=== PATIENT | male | born 1955 | race Caucasian/White ===

== ENCOUNTER 2023-02-28 15:20 | Outpatient (RCR) | payer MEDICARE, OTHER, SELFPAY | END 2023-04-02 08:00 | disposition home or self-care (01) | LOC: PT 15:20 | PROVIDERS: PCP Internal Medicine; Visit Provider Anesthesiology | DX: M54.2 Cervicalgia (principal) | CPT/HCPCS: 97010; 97012; 97140; 97162 ==

== ENCOUNTER 2023-04-03 10:12 | Outpatient (RCR) | payer MEDICARE, OTHER, SELFPAY | END 2023-04-05 16:46 | disposition home or self-care (01) | LOC: PT 10:12 | PROVIDERS: PCP Internal Medicine; Visit Provider Anesthesiology | DX: M54.2 Cervicalgia (principal) | CPT/HCPCS: 97012; 97140 ==

== ENCOUNTER 2024-07-18 13:08 | Outpatient (OUT) | payer MEDICARE, OTHER, SELFPAY ==
--- OUTSIDE RECORDS SUMMARY | 2024-07-18 13:25 | XMS_ITS | CCD ---
Author Organization [facility] Care Team Providers Care Senior Research Project Manager Name Role Phone DR DEMOND MERCADO Consulting Unavailable GORDON, DR BAE Attending Unavailable GORDON, DR BAE Admitting Unavailable GORDON, DR BAE Primary Care Unavailable DEMOND MERCADO Primary Care Physician [phone] [place] Oliveros Unavailable Demond Mercado MD Primary Care Provider Demond Mercado MD Unavailable BOB RAMIRES Attending Unavailable DOLBOB ARCHER Referring Unavailable DOLCE, BOB Montoya Attending Unavailable DOLBOB ARCHER Referring Unavailable DOLBOB ARCHER Attending Unavailable DEMOND MERCADO Attending Unavailable DOLCE, BOB Montoya Attending Unavailable NILLAaron Attending Unavailable Allergies Allergy Classification Reported Allergen(s) Allergy Type Date of Onset Reaction(s) Facility (5 sources) atorvastatin; Translations: [atorvastatin] Drug Allergy Muscle pain (finding) [place] (17 sources) atorvastatin Drug Allergy 3 [facility] Medications Current Medications Medication Drug Class(es) Dates Sig (Normalized) Sig (Original) acetaminophen 325 mg / oxyCODONE hydrochloride 5 mg oral tablet (4 sources) Opioid Agonist Start: 02-21-2024 End: 02-26-2024 take 1 tablet by mouth every six hours for pain oxyCODONE-acetam inophen (Percocet) 5-325 MG tablet Indications: Pain Take 1 tablet by mouth every 6 (six) hours if needed for severe pain for up to 5 days 15 tablet 02/21/2024 02/26/2024 Active ascorbic acid 500 mg oral capsule (18 sources) Vitamin C Ascorbic Acid (Vitamin C) 500 MG capsule Take by mouth 1 (one) time each day. Active B Complex Vitamins (vitamin B complex) tablet (17 sources) take 1 tablet by mouth in the morning B Complex Vitamins (vitamin B complex) tablet Take 1 tablet by mouth in the morning. Active diclofenac sodium 0.01 mg/mg topical gel (1 source) Nonsteroidal Anti-inflammatory Drug Start: 04-12-2023 Diclofenac Sodium 1 % as directed Externally apply 2 grams to painful areas two to three times daily for 30 days Apr, Active docosahexaenoic acid 120 mg / eicosapentaenoic acid 180 mg oral capsule (17 sources) take 1 capsule by mouth in the morning omega-3 (Fish Oil) 1000 MG capsule Take 1,000 mg by mouth in the morning. Active ferrous sulfate 325 mg oral tablet (17 sources) Start: 11-21-2016 Ferrous Sulfate (iron) 325 (65 Fe) MG tablet 1 (one) time each day. 11/21/2016 Active Fish Oils (6 sources) Start: 01-16-2020 take 2 capsules by mouth once daily Fish Oil 1200 mg oral capsule 2,400 mg = 2 cap(s), Oral, Daily, Refills(s) 0, High cholesterol Start Date: 01/16/20 Status: Ordered take 1 capsule by mouth once rudi ly Fish Oil 1000 MG 1 capsule Orally Once a day Active Iron (6 sources) Start: 02-11-2020 take 1 tablet by tamir th once daily iron iron, 1 tab, Oral, Daily Start Date: 02/11/20 Status: Ordered Start: 11-21-2016 Iron 1 tab Ora l *please review for potential _update for e-prescription and drug interaction check* Nov, Active levothyroxine sodium 0.1 mg oral tablet (20 sources) l-Thyroxine Start: 11-29-2022 End: 03-11-2025 take 1 tablet by mouth before mealtime levothyroxine (Synthroid, Levoxyl) 100 MCG tablet Indications: Hypothyroidism, unspecified (CMS/HCC) Take 1 tablet (100 mcg) by mouth in the morning. Take before meals. 90 tablet 3 03/11/2024 03/11/2025 Active Start: 01-16-2020 take 1 tablet by tamir th once daily levothyroxine 100 mcg (0.1 mg) Tab 100 microgram = 1 tab(s), Oral, Daily, Refills(s) 0, Thyroid Start Date: 01/16/20 Status: Ordered [facility] Medication (3 sources) Start: 08-31-2021 [facility] Medicatio n Start Date: 08/31/21 Status: Ordered naproxen 500 mg oral tablet (4 sources) Nonsteroidal Anti-inflammatory Drug Start: 01-16-2020 take 1 tablet by mouth once daily naproxen 500 mg Tab 500 mg = 1 tab(s), Oral, Daily, Refills(s) 0, Inflammation Start Date: 01/16/20 Status: Ordered Start: 09-11-2019 take 1 tablet by tamir th every twelve hours at mealtime as needed Naproxen 500 MG 1 tablet with food or milk as needed Orally every 12 hrs Sep, Active rosuvastatin calcium 40 mg oral tablet (20 sources) HMG-CoA Reductase Inhibitor Start: 08-21-2019 take 1 tablet by mouth once daily rosuvastatin (Crestor) 40 MG tablet Indications: Mixed hyperlipidemia (CMS/HCC) TAKE 1 TABLET BY MOUTH EVERY DAY 100 tablet 3 05/03/2023 Active saw palmetto (1 source) Start: 08-31-2021 Saw palmetto extract (2 sources) Start: 08-31-2021 sildenafil 100 mg oral tablet (20 sources) Phosphodiesterase 5 Inhibitor Start: 10-23-2023 sildenafil (Viagra) 100 MG tablet Indications: Erectile dysfunction, unspecified erectile dysfunction type Take 1 tablet (100 mg) by mouth if needed for erectile dysfunction 10 tablet 1 10/23/2023 Active Start: 08-31-2021 take 1 dose by mouth once daily as needed Start: 09-07-2015 take 1 tablet by tamir th once daily as needed Viagra 100 mg 1 tablet Orally Once a day as needed Sep, Active tiZANidine 2 mg oral tablet (1 source) Central alpha-2 Adrenergic Agonist Start: 06-29-2023 take 1 tablet by mouth once daily at bedtime tiZANidine 2 mg Tab TAKE 1 TABLET BY MOUTH EVERYDAY AT BEDTIME Start Date: 06/29/23 Status: Ordered turmeric extract 500 mg oral capsule (2 sources) Start: 08-31-2021 take 1 capsule by mouth once daily turmeric 500 mg oral capsule 500 mg = 1 cap(s), Oral, Daily, Refills(s) 0 Start Date: 08/31/21 Status: Ordered Vitamin B Complex (2 sources) Vitamin B Comple x - Orally Active Vitamin B Complex oral tablet (4 sources) Start: 01-16-2020 take 1 tablet by mouth once daily Vitamin B Complex oral tablet 1 tab(s), Oral, Daily, Refill(s) 0, Prophylaxis Start Date: 01/16/20 Status: Ordered vitamin b6 50 mg oral tablet (2 sources) take 1 tablet by mouth every twenty-four hours Vitamin B6 50 MG 1 tablet Orally Once a day Active Vitamin C 500 MG (1 source) Vitamin C 500 MG Orally Active Vitamin C 500 mg Tab (4 sources) Start: 01-16-2020 take 1 tablet by mouth once daily Vitamin C 500 mg Tab 500 mg = 1 tab(s), Oral, Daily, Refills(s) 0, Prophylaxis Start Date: 01/16/20 Status: Ordered Problems Active Problems Problem Classification Problem Date Documented Da te Episodic/Chronic Acquired foot deformities (10 sources) Acquired hammer toe of lesser toe of left foot; Translations: [Other hammer toe(s) (acquired), left foot] 01-24-2024 Chronic Administrative/social admission (4 sources) Patient encounter status; Translations: [Other specified counseling] 03-11-2024 Episodic Cardiac dysrhythmias (20 sources) Cardiac arrhythmia; Translations: [Cardiac arrhythmia, unspecified] Onset: 08-02-2022 08-02-2022 Chronic Disorders of lipid metabolism (20 sources) Hypercholesterolemia ; Translations: [Mixed hyperlipidemia] Onset: 10-20-2008 01-16-2020 Chronic Hyperplasia of prostate (17 sources) Benign prostatic hypertrophy with outflow obstruction; Translations: [Benign prostatic hyperplasia with lower urinary tract symptoms] Onset: 03-25-2020 11-28-2022 Chronic Miscellaneous mental health disorders (19 sources) Psychosexual dysfunction associated with inhibited sexual excitement; Translations: [Other sexual dysfunction not due to a substance or known physiological condition] Onset: 10-20-2008 08-02-2022 Chronic Osteoarthritis (20 sources) Localized, secondary osteoarthritis of the shoulder region; Translations: [Post-traumatic osteoarthritis, left shoulder] Onset: 12-15-2020 08-02-2022 Chronic Other bone disease and musculoskeletal deformities (3 sources) Exostosis; Translations: [Other specified disorders of bone, unspecified site] 01-24-2024 Episodic Other connective tissue disease (4 sources) Impingement syndrome of shoulder region 01-16-2020 Episodic Other connective tissue disease (6 sources) Pain in left foot; Translations: [Pain in left foot] 01-24-2024 Episodic Other nervous system disorders (2 sources) Chronic pain; Translations: [Other chronic pain] Chronic Other nervous system disorders (19 sources) Common peroneal nerve lesion; Translations: [Lesion of lateral popliteal nerve, right lower limb] Onset: 05-09-2017 11-28-2022 Chronic Other nervous system disorders (2 sources) Other chronic pain Chronic Spondylosis; intervertebral disc disorders; other back problems (20 sources) Cervical spondylosis; Translations: [Spondylosis without myelopathy or radiculopathy, cervical region] Onset: 10-24-2018 Chronic Thyroid disorders (20 sources) Hypothyroidism; Translations: [Hypothyroidism, unspecified] Onset: 11-30-2016 01-16-2020 Chronic Past or Other Problems Problem Classification Problem Date Documented Date Episodic/Chronic Deficiency and other anemia (19 sources) Anemia; Translations: [Anemia, unspecified] Onset: 08-02-2022 08-02-2022 Episodic Other connective tissue disease (17 sources) Left rotator cuff syndrome; Translations: [Unspecified rotator cuff tear or rupture of left shoulder, not specified as traumatic] Onset: 08-02-2022 08-02-2022 Episodic Other connective tissue disease (17 sources) Tear of left rotator cuff; Translations: [Unspecified rotator cuff tear or rupture of left shoulder, not specified as traumatic] Onset: 03-12-2020 11-28-2022 Episodic Other nervous system disorders (19 sources) Foot-drop gait; Translations: [Other abnormalities of gait and mobility] Onset: 08-02-2022 08-02-2022 Episodic Results Test Name Value Interpretation Reference Range Facility CBC (INCLUDES DIFF/PLT)on Basophils (Bld) [#/Vol] 0.041 10*3/uL Normal 0-200 [facility] Comment on above: Performed By: #### 8 66, 6399, 40335, 4760, 73466 #### [facility] [address] [address] Personal Consultant: Nico Barrrea MD Basophils/100 WBC (Bld) 1.0 % Normal [facility] Comment on above: Performed By: #### 8 66, 6399, 68699, 7600, 28894 #### [facility] [address] [place] [address] Personal Consultant: Nico Barrera MD Eosinophils (Bld) [#/Vol] 0.127 10*3/uL Normal 15-500 [facility] Comment on above: Performed By: #### 8 66, 6399, 05074, 7600, 11265 #### [facility] [place] [address] Personal Consultant: Nico Barrera MD Eosinophils/100 WBC (Bld) 3.1 % Normal [facility] Comment on above: Performed By: #### 8 66, 6399, 79888, 7600, 38148 #### [facility] [place] [address] Personal Consultant: Nico Barrera MD Erythrocyte distribution width (RBC) [Ratio] 13.2 % Normal 11.0-15.0 [facility] Comment on above: Performed By: #### 8 66, 6399, 87889, 7600, 94845 #### [facility] [place] [address] Personal Consultant: Nico Barrera MD Hematocrit (Bld) [Volume fraction] 42.2 % Normal 38.5-50.0 [facility] Comment on above: Performed By: #### 8 66, 6399, 61614, 7600, 90516 #### [facility] [place] [address] Personal Consultant: Nico Barrera MD Hemoglobin (Bld) [Mass/Vol] 13.7 g/dL Normal 13.2-17.1 [facility] Comment on above: Performed By: #### 8 66, 6399, 84637, 7600, 26249 #### [facility] [place] [address] Personal Consultant: Nico Barrera MD Lymphocytes (Bld) [#/Vol] 1.173 10*3/uL Normal 850-3900 [facility] Comment on above: Performed By: #### 8 66, 6399, 28116, 7600, 12994 #### [facility] of [address], [address] [place] [address] Personal Consultant: Nico Barrera MD Lymphocytes/100 WBC (Bld) 28.6 % Normal [facility] Comment on above: Performed By: #### 8 66, 6399, 04809, 7599, #### [facility] [place] [address] Personal Consultant: Nico Barrera MD MCH (RBC) [Entitic mass] 30.4 pg Normal 27.0-33.0 [facility] Comment on above: Performed By: #### 8 66, 6399, 38430, 7599, #### [facility] [place] [address] Personal Consultant: Nico Barrera MD MCHC (RBC) [Mass/Vol] 32.5 g/dL Normal 32.0-36.0 [facility] Comment on above: Result Comment: For adults, a slight decrease in the calculated MCHC value (in the range of 30 to 32 g/dL) is most likely not clinically significant; however, it should be interpreted with caution in correlation with other red cell parameters and the patient's clinical condition. Performed By: #### 8 66, 6399, 19161, 7599, #### [facility] [place] [address] Personal Consultant: Nico Barrera MD MCV (RBC) [Entitic vol] 93.6 fL Normal 80.0-100.0 [facility] Comment on above: Performed By: #### 8 66, 6399, 98774, 7599, #### [facility] [place] [address] Personal Consultant: Nico Barrera MD Monocytes (Bld) [#/Vol] 0.377 10*3/uL Normal 200-950 [facility] Comment on above: Performed By: #### 8 66, 6399, 08491, 7599, #### [facility] of [address] [place] [address] Personal Consultant: Nico Barrera MD Monocytes/100 WBC (Bld) 9.2 % Normal [facility] Comment on above: Performed By: #### 8 66, 6399, 54194, 7600, 67102 #### [facility] [place] [address] Personal Consultant: Nico Barrera MD Neutrophils (Bld) [#/Vol] 2.382 10*3/uL Normal 0345-6405 [facility] Comment on above: Performed By: #### 8 66, 6399, 62751, 7600, 54273 #### [facility] [place] [address] Personal Consultant: Nico Barrera MD Neutrophils/100 WBC (Bld) 58.1 % Normal [facility] Comment on above: Performed By: #### 8 66, 63, 24086, 7600, #### [facility] [place] [address] Personal Consultant: Nico Barrera MD Platelet mean volume (Bld) [Entitic vol] 10.3 fL Normal 7.5-12.5 [facility] Comment on above: Performed By: #### 8 66, 6399, 77934, 7600, 70868 #### [facility] [place] [address] Personal Consultant: Nico Barrera MD Platelets (Bld) [#/Vol] 258 10*3/uL Normal 140-400 [facility] Comment on above: Performed By: #### 8 66, 6399, 54922, 7600, 63617 #### [facility] [place] [address] Personal Consultant: Nico Barrera MD RBC (Bld) [#/Vol] 4.51 10*6/uL Normal 4.20-5.80 [facility] Comment on above: Performed By: #### 8 66, 6399, 08000, 7600, 94770 #### [facility] [place] [address] Personal Consultant: Nico Barrera MD WBC (Bld) [#/Vol] 4.1 10*3/uL Normal 3.8-10.8 [facility] Comment on above: Performed By: #### 8 66, 6399, 24885, 7600, 05541 #### [facility] [place] [address] Personal Consultant: Nico Barrera MD [facility] 03-14-2024 Albumin [Mass/Vol] 4.9 g/dL Normal 3.6-5.1 [facility] Comment on above: Performed By: #### 8 66, 6399, 87735, 7600, 59560 #### [facility] [place] [address] Personal Consultant: Nico Barrera MD Albumin/Globulin [Mass ratio] 2.1 {ratio} Normal 1.0-2.5 [facility] Comment on above: Performed By: #### 8 66, 6399, 11332, 7600, 08895 #### [facility] [place] [address] Personal Consultant: Nico Barrera MD ALP [Catalytic activity/Vol] 62 U/L Normal 35-144 [facility] Comment on above: Performed By: #### 8 66, 6399, 64763, 7600, 55052 #### [facility] [place] [address] Personal Consultant: Nico Barrera MD ALT [Catalytic activity/Vol] 27 U/L Normal 9-46 [facility] Comment on above: Performed By: #### 8 66, 6399, 36801, 7600, 26342 #### [facility] [place] [address] Personal Consultant: Nico Barrera MD AST [Catalytic activity/Vol] 24 U/L Normal 10-35 [facility] Comment on above: Performed By: #### 8 66, 6399, 09606, 7600, #### [facility] of [address], [address] [place] [address] Personal Consultant: Nico Barrera MD Bilirubin [Mass/Vol] 1.1 mg/dL Normal 0.2-1.2 [facility] Comment on above: Performed By: #### 8 66, 6399, 07200, 7600, 44914 #### [facility] [place] [address] Personal Consultant: Nico Barrera MD BUN/CREATININE RATIO SEE NOTE: Normal 6-22 [facility] Comment on above: Result Comment: Not Reported: BUN and Creatinine are within reference range. Performed By: #### 8 66, 6399, 63459, 7600, #### [facility] [place] [address] Personal Consultant: Nico Barrera MD Calcium [Mass/Vol] 9.6 mg/dL Normal 8.6-10.3 [facility] Comment on above: Performed By: #### 8 66, 6399, 43182, 7600, #### [facility] [place] [address] Personal Consultant: Nico Barrera MD Chloride [Moles/Vol] 103 mmol/L Normal 98-110 [facility] Comment on above: Performed By: #### 8 66, 6399, 42677, 7600, 90453 #### [facility] [place] [address] Personal Consultant: Nico Barrera MD CO2 [Moles/Vol] 27 mmol/L Normal 20-32 [facility] Comment on above: Performed By: #### 8 66, 6399, 02056, 7600, 10128 #### [facility] [place] [address] Personal Consultant: Nico Barrera MD Creatinine [Mass/Vol] 0.95 mg/dL Normal 0.70-1.35 [facility] Comment on above: Performed By: #### 8 66, 6399, 86876, 7600, 05256 #### [facility] [place] [address] Personal Consultant: Nico Barrera MD GFR/1.73 sq M.predicted among non-blacks MDRD (S/P/Bld) [Vol rate/Area] 87 mL/min/{1.73_m2} Normal > OR = 60 [facility] Comment on above: Performed By: #### 8 66, 6399, 32550, 7600, 18389 #### [facility] [address], [address] [place] [address] Personal Consultant: Nico Barrera MD Globulin (S) [Mass/Vol] 2.3 g/dL Normal 1.9-3.7 [facility] Comment on above: Performed By: #### 8 66, 6399, 96972, 7600, 95425 #### [facility] [place] [address] Personal Consultant: Nico Barrera MD Glucose [Mass/Vol] 98 mg/dL Normal 65-99 [facility] Comment on above: Result Comment: Fasting reference interval Performed By: #### 8 66, 6399, 25399, 7600, 61901 #### [facility] [place] [address] Personal Consultant: Nico Barrera MD Potassium [Moles/Vol] 4.8 mmol/L Normal 3.5-5.3 [facility] Comment on above: Performed By: #### 8 66, 6399, 56137, 7600, 62714 #### [facility] [place] [address] Personal Consultant: Nico Barrera MD Protein [Mass/Vol] 7.2 g/dL Normal 6.1-8.1 [facility] Comment on above: Performed By: #### 8 66, 6399, 36601, 7600, 86247 #### [facility] [place] [address] Personal Consultant: Nico Barrera MD Sodium [Moles/Vol] 138 mmol/L Normal 135-146 [facility] Comment on above: Performed By: #### 8 66, 6399, 08768, 7600, 20634 #### [facility] [address], [address] [place] [address] Personal Consultant: Nico Barrera MD Urea nitrogen [Mass/Vol] 19 mg/dL Normal 7-25 [facility] Comment on above: Performed By: #### 8 66, 6399, 02866, 7600, 33978 #### [facility] [address], [address] [place] [address] Personal Consultant: Nico Barrera MD LIPID PANEL, [facility] 12-1 Cholesterol [Mass/Vol] 203 mg/dL High <200 [facility] Comment on above: Order Comment: FASTI NG:YES FASTING: YES Performed By: #### 8 66, 6399, 75894, 7600, 19489 #### [facility] [address], [address] [place] [address] Personal Consultant: Nico Barrera MD Cholesterol in HDL [Mass/Vol] 43 mg/dL Normal > OR = 40 [facility] Comment on above: Order Comment: FASTI NG:YES FASTING: YES Performed By: #### 8 66, 6399, 33054, 7600, 38494 #### [facility] [address], [address] [place] [address] Personal Consultant: Nico Barrera MD Cholesterol in LDL [Mass/Vol] 128 mg/dL High [facility] Comment on above: Order Comment: FASTI NG:YES FASTING: YES Result Comment: Refe rence range: <100 Desirable range <100 mg/dL for primary prevention; <70 mg/dL for patients with CHD or diabetic patients with > or = 2 CHD risk factors. LDL-C is now calculated using the Tal calculation, which is a validated novel method providing better accuracy than the Friedewald equation in the estimation of LDL-C. Nghia SAUCEDO et al. KIERSTEN. 2013;310(19): 4985-6946 (http://education.2heuresavant.Molcure/faq/RIY052) Performed By: #### 8 66, 6399, 48009, 7600, 87744 #### [facility] [address], [address] [place] [address] Personal Consultant: Nico Barrera MD Cholesterol.total/C holesterol in HDL [Mass ratio] 4.7 {ratio} Normal <5.0 [facility] Comment on above: Order Comment: FASTI NG:YES FASTING: YES Performed By: #### 8 66, 6399, 11219, 7600, 39246 #### [facility] [address], [address] [place] [address] Personal Consultant: Nico Barrera MD NON HDL CHOLESTEROL 160 mg/dL (calc) High <130 [facility] Comment on above: Order Comment: FASTI NG:YES FASTING: YES Result Comment: For patients with diabetes plus 1 major ASCVD risk factor, treating to a non-HDL-C goal of <100 mg/dL (LDL-C of <70 mg/dL) is considered a therapeutic option. Performed By: #### 8 66, 6399, 18871, 7600, 32355 #### [facility] [address], [address] [place] [address] Personal Consultant: Nico Barrera MD Triglyceride [Mass/Vol] 188 mg/dL High <150 [facility] Comment on above: Order Comment: FASTI NG:YES FASTING: YES Performed By: #### 8 66, 6399, 64143, 7600, 03169 #### [facility] [address], [address] [place] [address] Personal Consultant: Nico Barrera MD PSA, TOTALon 03-14-2024 PSA, TOTAL 0.66 ng/mL Normal < OR = 4.00 [facility] Comment on above: Result Comment: The total PSA value from this assay system is standardized against the WHO standard. The test result will be approximately 20% lower when compared to the equimolar-standardized total PSA ([place]). Comparison of serial PSA results should be interpreted with this fact in mind. This test was performed using the Siemens chemiluminescent method. Values obtained from different assay methods cannot be used interchangeably. PSA levels, regardless of value, should not be interpreted as absolute evidence of the presence or absence of disease. Performed By: #### 8 66, 6399, 17103, 7600, 08166 #### [facility] [address], [address] [place] [address] Personal Consultant: Nico Barrera MD T4, FREEon 03-14-2024 Free T4 [Mass/Vol] 1.2 ng/dL Normal 0.8-1.8 [facility] Comment on above: Performed By: #### 8 66, 6399, 26288, 7600, 30740 #### [facility] [address], [address] [place] [address] Personal Consultant: Nico Barrera MD TSH W/REFLEX TO FT4on 2023 TSH W/REFLEX TO FT4 6.15 mIU/L High 0.40-4.50 [facility] Comment on above: Performed By: #### 8 66, 6399, 31743, 7600, 04357 #### [facility] [address], [address] [place] [address] Personal Consultant: Nico Barrera MD XR Foot - left 3 [facility] Result: Three views were taken today AP/MO/LAT foot: No fractures or dislocations seen excellent position and alignment of the 5th digit excellent reduction of the hammertoe deformity of the 4th and 5th digit left [facility] Lumbar Spine w/oon 08-04 MRI Lumbar Spine w/o HISTORY: Chronic low back pain radiating to the right hip. TECHNIQUE: Routine lumbosacral spine MR protocol without gadolinium. Contrast: None. COMPARISON: Lumbar radiographs 12/23/2020. RESULT: Counting reference: Lumbosacral junction. For the purposes of this report, L5-S1 is considered the last well-formed disc space. Alignment: Alignment is essentially anatomic. Bone marrow signal/fracture: No evidence of pathologic marrow infiltration. No evidence of prior fracture. Areas of endplate degenerative signal. Conus: The conus is within normal limits of signal intensity and morphology. Paraspinal soft tissues: Small T2 hyperintense renal lesions likely cysts. Lower thoracic spine: Visualized lower thoracic canal and foramina are without significant narrowing. T12-L1: No significant canal or foraminal narrowing. L1-L2: Broad-based disc bulge. Endplate osteophytes. Facet degenerative changes. No significant canal or foraminal narrowing. L2-L3: Broad-based disc bulge. Facet degenerative changes. No significant canal or foraminal narrowing. L3-L4: Disc height loss. Broad-based disc bulge. Endplate osteophytes. Apparent disc extrusion, extending cranially along the posterior endplate of L3 to the midposterior body level. Facet degenerative changes. Mild bilateral foraminal narrowing without significant canal narrowing. L4-L5: Disc height loss. Endplate degenerative signal. Broad-based disc bulge. Endplate osteophytes. Facet degenerative changes. Moderate bilateral foraminal narrowing. No significant canal narrowing. L5-S1: Disc height loss. Endplate osteophytes. Broad-based disc bulge. Facet degenerative changes. Mild to moderate right and mild left foraminal narrowing without significant canal narrowing. Sacrum and iliac wings: The visualized sacrum and iliac wings are within normal limits. The presacral soft tissues are normal in appearance. IMPRESSION: Multilevel degenerative changes lumbar spine. No high-grade canal narrowing. Multilevel foraminal narrowing. Small disc extrusion at L3-L4. Report reported and signed by Demond Almazan on 08/05/2021 1306 Normal [facility] Covid-19 PCR (CVDTBH)on 06-02 SARS-CoV-2 (COVID-19) RNA NINA+probe Ql (Unsp spec) Not detected Normal NOT DETECTED [facility] Comment on above: Result Comment: When diagnostic testing is negative, the possibility of a false negative should be considered in the context of a patient's recent exposures and the presence of clinical signs and symptoms consistent with SARS-CoV-2. This test is not yet approved or cleared by the [place] Food and Drug Administration (FDA). This test was developed by [employer], [place], [place]. The performance characteristics of this test were validated by [facility]. The results are not intended to be used as the sole means for clinical diagnosis or patient management decisions. [facility] is authorized under Clinical Laboratory Improvement Amendments (CLIA) to perform high- complexity testing. This test is not yet approved or cleared by the [place] FDA. When there are no FDA-approved or cleared tests available, and other criteria are met, FDA can make tests available under an emergency access mechanism called an Emergency Use Authorization (EUA). The EUA for this test is supported by the Tiger Machine Operator of Health and Human Service's declaration that circumstances exist to justify the emergency use of in vitro diagnostics for the detection and/or diagnosis of the virus that causes COVID-19. This EUA will remain in effect for the duration of the COVID-19 declaration justifying emergency of IVDs, unless it is terminated or revoked by the FDA (after which the test may no longer be used). Performed By: #### [facility] #### [facility] [address] [place] [address] Dr. Alejandra Corrales Vital Signs Date Time Vital Sign Value Performing Clinician Facility 03-25-2024 09:26-0500 Body height 182.9 cm Bob Ramires DPM FACFAS Work Phone: [facility] 03-25-2024 09:26-0500 Body mass index (BMI) [Ratio] 28.07 kg/m2 Bob Ramires DPM FACFAS Work Phone: [facility] 03-25-2024 09:26-0500 Body weight 93.89 kg Bob Ramires DPM FACFAS Work Phone: [facility] 03-25-2024 09:26-0500 Diastolic blood pressure 74 mm[Hg] Bob Ramires DPM FACFAS Work Phone: [facility] 03-25-2024 09:26-0500 Heart rate 60 /min Bob Rmaires DPM FACFAS Work Phone: [facility] 03-25-2024 09:26-0500 Systolic blood pressure 124 mm[Hg] Bob Ramires DPM FACFAS Work Phone: [facility] 03-11-2024 10:30-0500 Body height 182.9 cm Demond Mercado MD Work Phone: [facility] 03-11-2024 10:30-0500 Body mass index (BMI) [Ratio] 28.07 kg/m2 Demond Mercado MD Work Phone: [facility] 03-11-2024 10:30-0500 Body weight 93.89 kg Demond Mercado MD Work Phone: [facility] 03-11-2024 10:30-0500 Diastolic blood pressure 70 mm[Hg] Demond Mercado MD Work Phone: [facility] 03-11-2024 10:30-0500 Heart rate 56 /min Demond Mercado MD Work Phone: [facility] 03-11-2024 10:30-0500 SaO2% (BldA) [Mass fraction] 97 % Demond Mercado MD Work Phone: [facility] 03-11-2024 10:30-0500 Systolic blood pressure 122 mm[Hg] Demond Mercado MD Work Phone: [facility] 03-05-2024 08:33-0500 Body height 182.9 cm Bob Dolce DPM FACFAS Work Phone: [facility] 03-05-2024 08:33-0500 Body mass index (BMI) [Ratio] 28.75 kg/m2 Bob Dolce DPM FACFAS Work Phone: [facility] 03-05-2024 08:33-0500 Body weight 96.16 kg Bob Dolce DPM FACFAS Work Phone: [facility] 03-05-2024 08:33-0500 Diastolic blood pressure 75 mm[Hg] Bob Dolce DPM FACFAS Work Phone: [facility] 03-05-2024 08:33-0500 Heart rate 73 /min Bob Dolce DPM FACFAS Work Phone: [facility] 03-05-2024 08:33-0500 Systolic blood pressure 129 mm[Hg] Bob Dolce DPM FACFAS Work Phone: [facility] 02-26-2024 11:21-0500 Body height 182.9 cm Bob Dolce DPM FACFAS Work Phone: [facility] 02-26-2024 11:21-0500 Body mass index (BMI) [Ratio] 29.16 kg/m2 Bob Dolce DPM FACFAS Work Phone: [facility] 02-26-2024 11:21-0500 Body weight 97.52 kg Bob Dolce DPM FACFAS Work Phone: [facility] 02-26-2024 11:21-0500 Diastolic blood pressure 77 mm[Hg] Bob Dolce DPM FACFAS Work Phone: [facility] 02-26-2024 11:21-0500 Heart rate 74 /min Bob Dolce DPM FACFAS Work Phone: [facility] 02-26-2024 11:21-0500 Systolic blood pressure 128 mm[Hg] Bob Dolce DPM FACFAS Work Phone: [facility] 01-24-2024 15:08-0400 Body height 182.9 cm Bob Dolce DPM FACFAS Work Phone: [facility] 01-24-2024 15:08-0400 Body mass index (BMI) [Ratio] 29.16 kg/m2 Bob Dolce DPM FACFAS Work Phone: [facility] 01-24-2024 15:08-0400 Body weight 97.52 kg Bob Dolce DPM FACFAS Work Phone: [facility] 01-24-2024 15:08-0400 Diastolic blood pressure 75 mm[Hg] Bob Dolce DPM FACFAS Work Phone: [facility] 01-24-2024 15:08-0400 Heart rate 52 /min Bob Dolce DPM FACFAS Work Phone: [facility] 01-24-2024 15:08-0400 Systolic blood pressure 126 mm[Hg] Bob Dolce DPM FACFAS Work Phone: [facility] 06-29-2023 09:40-0400 Diastolic blood pressure 76 mm[Hg] Salvatore Small [place] 06-29-2023 09:40-0400 Heart rate 56 /min Salvatore Small [place] 06-29-2023 09:40-0400 Mean blood pressure 98 mm[Hg] Salvatore Small [place] 06-29-2023 09:40-0400 Respiratory rate 18 /min Salvatore Small [place] 06-29-2023 09:40-0400 Systolic blood pressure 143 mm[Hg] Salvatore Small [place] 04-12-2023 13:30-0500 Body height 184.15 cm Lincoln Cyrky Other [place] [facility] [employer] Other 04-12-2023 13:30-0500 Body mass index (BMI) [Ratio] 27.82 kg/m2 Lincoln Cyrky Other [facility] Other 04-12-2023 13:30-0500 Body weight 94.35 kg Lincoln Oliveros Other [facility] Other 04-12-2023 13:30-0500 SaO2% (BldA) [Mass fraction] 98 % Lincoln Arlin Other [facility] Other 02-20-2023 13:00-0500 Body height 184.15 cm Lincolnheraclio Oliveros Other [facility] Other 02-20-2023 13:00-0500 Body mass index (BMI) [Ratio] 27.55 kg/m2 Lincolnheraclio Oliveros Other [facility] Other 02-20-2023 13:00-0500 Body weight 93.44 kg Lincoln Oliveros Other [facility] Other 02-20-2023 13:00-0500 Diastolic blood pressure 74 mm[Hg] Lincoln Oliveros Other [place] [facility] [employer] Other 02-20-2023 13:00-0500 SaO2% (BldA) [Mass fraction] 97 % Lincoln Oliveros Other [place] [facility] [employer] Other 02-20-2023 13:00-0500 Systolic blood pressure 126 mm[Hg] Lincoln Oliveros Other [place] [facility] [employer] Other 10-22-2021 08:59-0400 Diastolic blood pressure 76 mm[Hg] Sol Cerora [place] 10-22-2021 08:59-0400 Heart rate 63 /min Sol Cerora [place] 10-22-2021 08:59-0400 Mean blood pressure 88 mm[Hg] Sol Cerora [place] 10-22-2021 08:59-0400 Respiratory rate 14 /min Sol Cerora [place] 10-22-2021 08:59-0400 Systolic blood pressure 113 mm[Hg] Sol Cerora [place] 10-05-2021 07:48-0400 Diastolic blood pressure 82 mm[Hg] Aries Lola [place] 10-05-2021 07:48-0400 Heart rate 51 /min Aries Lola [place] 10-05-2021 07:48-0400 Mean blood pressure 97 mm[Hg] Aries Lola [place] 10-05-2021 07:48-0400 SaO2% (BldA) [Mass fraction] 99 % Aries Lola [place] 10-05-2021 07:48-0400 Systolic blood pressure 128 mm[Hg] Aries Lola [place] 10-05-2021 07:44-0400 Diastolic blood pressure 92 mm[Hg] Aries Lola [place] 10-05-2021 07:44-0400 Heart rate 45 /min Aries Lola [place] 10-05-2021 07:44-0400 Respiratory rate 16 /min Aries Lola [place] 10-05-2021 07:44-0400 SaO2% (BldA) [Mass fraction] 97 % Aries Lola [place] 10-05-2021 07:44-0400 Systolic blood pressure 140 mm[Hg] Aries Lola [place] 10-05-2021 06:38-0400 Body temperature 97.88 [degF] Aries Lola [place] 10-05-2021 06:38-0400 Diastolic blood pressure 80 mm[Hg] Aries Lola [place] 10-05-2021 06:38-0400 Heart rate 50 /min Aries Lola [place] 10-05-2021 06:38-0400 Mean blood pressure 103 mm[Hg] Aries Lola [place] 10-05-2021 06:38-0400 Respiratory rate 14 /min Aries Lola [place] 10-05-2021 06:38-0400 SaO2% (BldA) [Mass fraction] 98 % Aries Lola [place] 10-05-2021 06:38-0400 Systolic blood pressure 148 mm[Hg] Aries Lola [place] 08-31-2021 14:15-0400 Diastolic blood pressure 81 mm[Hg] Aries Lola [place] 08-31-2021 14:15-0400 Heart rate 54 /min Aries Lola [place] 08-31-2021 14:15-0400 Mean blood pressure 104 mm[Hg] Aries Lola [place] 08-31-2021 14:15-0400 Respiratory rate 16 /min Aries Lola [place] 08-31-2021 14:15-0400 Systolic blood pressure 151 mm[Hg] Aries Davila [place] Encounters Encounter Date Encounter Type Care Provider Facility Start: 07-16-2024 ambulatory Aaron SIMMS Facility :[facility] Start: 06-18-2024 ambulatory Aaron SIMMS Facility: Jose [facility] Start: 03-25-2024 End: 03-25-2024 Bamboo flowsheet Bob Ramires DPM FACFAS Work Phone: [facility] Start: 03-25-2024 End: 03-25-2024 Bamboo flowsheet Bob Ramires DPM FACFAS Work Phone: [facility] Start: 03-25-2024 End: 03-25-2024 Postop follow up visit related to original px Bob Ramires DPM FACFAS Work Phone: [facility] Comment on above: Acquired hammer toe deformity of lesser toe of left foot (Primary Dx); Left foot pain Start: 03-25-2024 End: 03-25-2024 ambulatory BOB RAMIRES Not Available Start: 03-11-2024 End: 03-11-2024 Bamboo flowsheet Demond Mercado MD Work Phone: [facility] Start: 03-11-2024 End: 03-11-2024 Bamboo flowsheet Demond Mercado MD Work Phone: [facility] Start: 03-11-2024 End: 03-11-2024 Assay of hemosiderin, quant Demond Mercado MD Work Phone: [facility] Start: 03-11-2024 End: 03-11-2024 Patient encounter procedure Demond Mercado MD Work Phone: [facility] Comment on above: Routine general medi will examination at health care facility (Primary Dx); ACP (advance care planning); Hypothyroidism, unspecified (CMS/HCC); Acquired hypothyroidism (CMS/HCC); Mixed hyperlipidemia (CMS/HCC); Other cardiac arrhythmia; Lumbosacral spondylosis without myelopathy; Prostate cancer screening Start: 03-11-2024 End: 03-11-2024 ambulatory DEMOND MERCADO Not Available Start: 03-05-2024 End: 03-05-2024 Bamboo flowsheet Bob Joshice DPM FACFAS Work Phone: [facility] Start: 03-05-2024 End: 03-05-2024 Bamboo flowsheet Bob Joshice DPM FACFAS Work Phone: [facility] Start: 03-05-2024 End: 03-05-2024 ambulatory BOB RAMIRES Not Available Start: 03-05-2024 End: 03-05-2024 Postop follow up visit related to original px Bob Joshice DPM FACFAS Work Phone: [facility] Comment on above: Acquired hammer toe deformity of lesser toe of left foot (Primary Dx) Start: 02-26-2024 End: 02-26-2024 Bamboo flowsheet Bob Joshice DPM FACFAS Work Phone: [facility] Start: 02-26-2024 End: 02-26-2024 Bamboo flowsheet Bob Joshice DPM FACFAS Work Phone: [facility] Start: 02-26-2024 End: 02-26-2024 ambulatory BOB D DOLCE Not Available Start: 02-26-2024 End: 02-26-2024 Patient encounter procedure Bob D Dolce DPM FACFAS Work Phone: [facility] Comment on above: Acquired hammer toe deformity of lesser toe of left foot (Primary Dx); Left foot pain Start: 02-21-2024 End: 02-21-2024 Telephone encounter Bob D Dolce DPM FACFAS Work Phone: [facility] Start: 01-24-2024 End: 01-24-2024 Office outpatient new 45 minutes Bob D Dolce DPM FACFAS Work Phone: [facility] Comment on above: Acquired hammer toe deformity of lesser toe of left foot (Primary Dx); Left foot pain; Exostosis Start: 01-24-2024 End: 01-24-2024 ambulatory BOB D DOLCE Not Available Start: 01-24-2024 End: 01-24-2024 Bamboo flowsheet Bob D Dolce DPM FACFAS Work Phone: [facility] Start: 01-24-2024 End: 01-24-2024 Bamboo flowsheet Bob D Dolce DPM FACFAS Work Phone: [facility] Start: 01-24-2024 End: 01-24-2024 Telephone encounter Bob D Dolce DPM FACFAS Work Phone: [facility] Start: 06-29-2023 End: 06-29-2023 Pain Management Salvatore Small [place] Start: 04-12-2023 End: 04-12-2023 ambulatory Lincoln Oliveros Other [facility] Other Start: 04-12-2023 Office outpatient vi sit 15 minutes Lincoln Oliveros [facility] Start: 02-20-2023 End: 02-20-2023 ambulatory Lincoln Oliveros Other [facility] Other Start: 02-20-2023 Office outpatient ne w 45 minutes Lincoln Oliveros [facility] Start: 10-22-2021 End: 10-22-2021 Pain Management Sol Live [place] Start: 10-05-2021 End: 10-05-2021 Pain Management Aries Davila [place] Start: 08-31-2021 End: 08-31-2021 Pain Management Ariesherson Davila [place] Start: 06-21-2021 End: 06-22-[address] DEMOND MERCADO Facility:[facility] Procedures Date Procedure Procedure Detail Performing Clinician Start: 02-26-2024 Radex foot complete minimum 3 views Bob Ramires DPM FACFAS Work Phone: Start: 10-05-2021 Injection of nerve r oot of lumbar spine using fluoroscopic guidance Sol Cerora Comment on above: L3 80% RELIEF Start: 02-11-2020 Repair of musculoten dinous cuff of shoulder Aries Davila Start: 03-10-2014 Colonoscopy Bob Ramires DPM FACFAS Work Phone: Fasciotomy of foot Aries Frank marie Plan of Treatment Date Care Activity Detail Author Start: 03-11-2025 Medicare Annual Wellness (AWV) Medicare Annual Wellness (AWV) [facility] Start: 03-25-2024 End: 03-25-2024 Patient encounter procedure 03/25/2024 9:20 AM EST [facility] Visit [facility] [address] [facility] [place] [address] Bob Ramires, DPM FACFAS [address] [facility] [place] [address] Arrived [facility] Comment on above: Arrived Start: 03-19-2024 End: 03-19-2024 Patient encounter procedure 03/19/2024 8:20 AM EST Office Visit [facility] [address] [place] [address] Bob Ramires, DPM FACFAS [address] [place] [address] [facility] Start: 03-11-2024 End: 03-11-2025 Comprehensive metabolic 2000 panel - Serum or Plasma Comprehensive metabolic panel Lab Routine Routine general medical examination at health care facility Lumbosacral spondylosis without myelopathy Expected: 03/11/2024 (Approximate), Expires: 03/11/2025 [facility] Comment on above: Expected: 03/11/2024 (Approximate), Expires: 03/11/2025 Start: 03-11-2024 End: 03-11-2025 Lipid 1996 panel - Serum or Plasma Lipid panel Lab Routine Mixed hyperlipidemia (CMS/HCC) Expected: 03/11/2024 (Approximate), Expires: 03/11/2025 [facility] Comment on above: Expected: 03/11/2024 (Approximate), Expires: 03/11/2025 Start: 03-11-2024 End: 03-11-2025 TSH W/REFLEX TO FT4 TSH W/REFLEX TO FT4 Lab Routine Acquired hypothyroidism (CMS/HCC) Expected: 03/11/2024 (Approximate), Expires: 03/11/2025 [facility] Comment on above: Expected: 03/11/2024 (Approximate), Expires: 03/11/2025 Start: 03-11-2024 End: 03-11-2024 Patient encounter procedure 03/11/2024 10:45 AM EST Office Visit [facility] [address] [facility] [address] [place] [id number] Demond Mercado MD [address] [facility] [address] [place] [address] Arrived [facility] Comment on above: Arrived Start: 03-10-2024 Screening for malign ant neoplasm of colon [facility] Start: 03-05-2024 End: 03-05-2024 Patient encounter procedure 03/05/2024 8:20 AM EST Office Visit [facility] [address] [place] [phone] Bob Ramires, DPM FACFAS [address] [facility] [place] [address] [facility] Start: 02-26-2024 End: 02-26-2024 Patient encounter procedure 02/26/2024 11:00 AM EST Office Visit [facility] [address] [place] [address] Bob Ramires, DPM FACFAS [address] [facility] [place] [address] [facility] Start: 01-24-2024 End: 01-24-2024 Patient encounter procedure 01/24/2024 2:50 PM EDT Office Visit [facility] [address] [facility] [place] [address] Bob Ramires, DPM FACFAS [address] [place] [address] Arrived [facility] Comment on above: Arrived Start: 08-27-2023 Medicare Annual Wellness (AWV) Medicare Annual Wellness (AWV) [facility] Start: 1955 Screening for malign ant neoplasm of colon [facility] CBC W Auto Different ial panel - Blood CBC and differential Lab Routine Routine general medical examination at health care facility Lumbosacral spondylosis without myelopathy Ordered: 03/11/2024 [facility] Comment on above: Ordered: 03/11/2024 Prostate specific Ag [Mass/volume] in Serum or Plasma PSA Lab Routine Prostate cancer screening Ordered: 03/11/2024 [facility] Work Phone: Comment on above: Ordered: 03/11/2024 XR Foot - left 3 Views XR foot 3 + views left Imaging Routine Left foot pain 01/24/2024 2:59 PM EDT [facility] Work Phone: Immunizations Immunization Date Immunization Notes Care Provider Reji reed 12-26-2023 Seasonal trivalent influenza vaccine, adjuvanted, preservative free Demond Mercado MD Work Phone: [facility] 01-03-2023 Influenza, Seasonal, Quadrivalent, Adjuvanted Demond Mercado MD Work Phone: [facility] 01-25-2022 Influenza, Seasonal, Quadrivalent, Adjuvanted Bob Dolce DPM FACFAS Work Phone: [facility] 12-28-2021 Moderna SARS-CoV-2 50mcg/0.5mL Booster Bob Dolce DPM FACFAS Work Phone: [facility] 12-28-2021 SARS-COV-2 (COVID-19 ) vaccine, mRNA, spike protein, LNP, bivalent, preservative free, 30 mcg/0.3 mL dose, fei-sucrose formulation Bob Dolce DPM FACFAS Work Phone: [facility] 01-13-2021 influenza, high dose seasonal, preservative-free Bob Dolce DPM FACFAS Work Phone: [facility] 01-13-2021 Influenza, High-dose Seasonal, Quadrivalent, Preservative Free Bob Dolce DPM FACFAS Work Phone: [facility] 10-06-2020 pneumococcal polysaccharide vaccine, 23 valent Bob Dolce DPM FACFAS Work Phone: [facility] 12-31-2019 influenza, seasonal, injectable, preservative free Bob Dolce DPM FACFAS Work Phone: [facility] 12-20-2019 influenza, injectabl e, quadrivalent, preservative free Bob Dolce DPM FACFAS Work Phone: [facility] 10-11-2019 pneumococcal conjuga te vaccine, 13 valent Bob Dolce DPM FACFAS Work Phone: [facility] 10-08-2019 pneumococcal vaccine , unspecified formulation; Translations: [Prevnar 13 -] Lincoln Oliveros Other [facility] Other 01-28-2019 influenza, injectabl e, quadrivalent, contains preservative Bob Dolce DPM FACFAS Work Phone: [facility] 01-15-2018 influenza, injectabl e, quadrivalent, contains preservative Bob Dolce DPM FACFAS Work Phone: [facility] 02-01-2017 seasonal influenza, intradermal, preservative free Bob Dolce DPM FACFAS Work Phone: [facility] 09-13-2016 zoster vaccine, live Bob Do lce DPM FACFAS Work Phone: [facility] 03-03-2015 influenza, seasonal, injectable, preservative free Bob Dolce DPM FACFAS Work Phone: [facility] 03-03-2015 seasonal influenza, intradermal, preservative free Bob Dolce DPM FACFAS Work Phone: [facility] Payers Date Payer Category Payer [facility] [place] [id number] 2019 Medicare MEDICARE [id number] 1959 Medicare [id number] 1960 Unknown [id number] 1955 Unknown [id number] 1954 Unknown [id number] 9 1954 Unknown [id number]. 1259 1954 Unknown [id number]. 9 1954 Unknown [id number] 9 1954 Unknown [id number] [id number]. 1259 1954 Unknown [id number] [id number]. 9 1954 Unknown [id number] [id number]. 9 1954 Unknown [id number] 727 1955 Unknown [id number] 727 Social History Date Type Detail Facility Start: 08-31-2021 Tobacco smoking status Ex-smoker (fi nding) [place] Start: 08-25-2022 End: 03-11-2024 Sex Assigned At Male [facility] Start: 11-28-2022 Tobacco smoking stat us MDIS Never smoked tobacco [facility] Start: 11-28-2022 Tobacco use and exposure Smoke less tobacco non-user [facility] Start: 01-31-2023 End: 03-25-2024 Alcoholic beverage intake Ex-drinker (finding) [facility] Start: 08-25-2022 End: 01-31-2023 Alcoholic beverage intake [facility] Within the last year , have you been afraid of your partner or ex-partner? No [facility] Do you belong to any clubs or organizations such as mormonism groups, unions, fraternal or athletic groups, or school groups? Yes [facility] Are you now , , , , never or living with a partner? [facility] How often to you hav e a drink containing alcohol? 2-4 times a month [facility] How many standard dr inks containing alcohol do you have on a typical day? 1 or 2 [facility] How often do you hav e 6 or more drinks on 1 occasion? Never [facility] How hard is it for y ou to pay for the very basics like food, housing, medical care, and heating Not hard at all [facility] Do you feel stress - tense, restless, nervous, or anxious, or unable to sleep at night because your mind is troubled all the time - these days [OSQ] To some extent [facility] (I/We) worried steve er (my/our) food would run out before (I/we) got money to buy more. Never true [facility] Start: 12-23-2022 Alcohol Comment caffeine 1-2 c ups per day; coffee/tea [facility] Start: 1955 Sex assigned at Not on file [facility] Medical Equipment Procedure Code Equipment Code Equipment Origin al Text Equipment Identifier Dates [id number] [facility] Start: 02-11-2020 Functional Status Date Assessment Result Facility 06-29-2023 Functional Status N/A [facility] 10-22-2021 Functional Status N/A [facility] 10-05-2021 Functional Status N/A [facility] Clinical Notes 08-31-2021 to 03-25-2024 JENNY Richardson - 03/25/2024 9:20 AM David Mercado MD - 03/11/2024 10:45 AM JENNY Smalls - 03/05/2024 8:20 AM JENNY Smalls - 02/26/2024 11:00 AM EST Note Date & Type Note Facility 03-25-2024 History of Presen t illness Narrative Images from the original note were not included. Patient: Odalys Moser : 1955 PCP: Demond Mercado MD SUBJECTIVE This is a 68 y.o. male that presents today The patient is here status post hammertoe correction spur removal 4th digit /hemiphalangectomy procedure. Postop week4 . They deny fevers, chills, nausea, vomiting, calf pain and shortness of breath. Pain level is being managed with ice elevation and pain medication. They have been relatively compliant with her postoperative care. Patient is doing significantly better Allergies: Allergies Allergen Reactions Atorvastatin Other Reaction(s): Muscle pain Past Medical History: Past Medical History: Diagnosis Date Actinic keratoses Allergies Anemia Cervical arthritis Depression (CMS/HCC) High cholesterol (CMS/HCC) Hypothyroid (CMS/HCC) Medications: Current Outpatient Medications: Ascorbic Acid (Vitamin C) 500 MG capsule, Take by mouth 1 (one) time each day., Disp: , Rfl: B Complex Vitamins (vitamin B complex) tablet, Take 1 tablet by mouth in the morning., Disp: , Rfl: Ferrous Sulfate (iron) 325 (65 Fe) MG tablet, 1 (one) time each day., Disp: , Rfl: levothyroxine (Synthroid, Levoxyl) 100 MCG tablet, Take 1 tablet (100 mcg) by mouth in the morning. Take before meals., Disp: 90 tablet, Rfl: 3 omega-3 (Fish Oil) 1000 MG capsule, Take 1,000 mg by mouth in the morning., Disp: , Rfl: rosuvastatin (Crestor) 40 MG tablet, TAKE 1 TABLET BY MOUTH EVERY DAY, Disp: 100 tablet, Rfl: 3 sildenafil (Viagra) 100 MG tablet, Take 1 tablet (100 mg) by mouth if needed for erectile dysfunction, Disp: 10 tablet, Rfl: 1 Review of systems: Constitutional: Denies fever, chills, nausea, vomiting GI: Denies abdominal pain, cramping, loose stool, gastric ulcers Musculoskeletal: Denies low back pain, knee pain, systemic arthritis Neurologic: Denies burning, tingling, transient paralysis OBJECTIVE Physical Examination: DERM: Positive hair growth to b/l feet with good skin turgor noted. Negative openings in skin VASC: DP /PT were palpable bilateral. Capillary refill time < 3 seconds Digits 1-5 bilateral NEURO: [place] Caprice 5.07 monofilament was intact B/L. Vibratory sensation was intact B/L Musculoskeletal: Muscle strength was +5 over 5 all intrinsic and extrinsic muscles tested. Negative Homans test noted Surgical site evaluation: No pain toe is in good position and alignment ASSESSMENT 1. Acquired hammer toe deformity of lesser toe of left foot 2. Left foot pain PLAN Patient can return to regular shoe gear to tolerance follow up with me p.r.n. Bob Ramires DPM FACFAS documented in this encounter [facility] 03-11-2024 History of Presen t illness Narrative Images from the original note were not included. HPI Med Refill Additional comments: [facility] Last edited by Grisel Flanagan LPN on 03/11/2024 10:34 AM. Subjective : Chief Complaint: Odalys Moser is an 68 y.o. male here for an annual wellness visit. I have reviewed and reconciled the history and medication list with the patient today. Current Outpatient Medications Medication Sig Dispense Refill Ascorbic Acid (Vitamin C) 500 MG capsule Take by mouth 1 (one) time each day. B Complex Vitamins (vitamin B complex) tablet Take 1 tablet by mouth in the morning. Ferrous Sulfate (iron) 325 (65 Fe) MG tablet 1 (one) time each day. levothyroxine (Synthroid, Levoxyl) 100 MCG tablet TAKE 1 TABLET BY MOUTH ONCE EVERY MORNING ON AN EMPTY STOMACH 90 tablet 3 omega-3 (Fish Oil) 1000 MG capsule Take 1,000 mg by mouth in the morning. rosuvastatin (Crestor) 40 MG tablet TAKE 1 TABLET BY MOUTH EVERY DAY 100 tablet 3 sildenafil (Viagra) 100 MG tablet Take 1 tablet (100 mg) by mouth if needed for erectile dysfunction 10 tablet 1 No current facility-administered medications for this visit. Review of Systems List of current healthcare providers: Patient Care Team: Demond Mercado MD as PCP - General (Internal Medicine) Demond Mercado MD as PCP - ACO Re[employer] Medicare Annual Visit Over the past 2 weeks, how often have you been bothered by any of the following problems? Little interest or pleasure in doing things: Not at all Feeling down, depressed, or hopeless: Not at all Patient Health Questionnaire-2 Score: 0 Fenton Fall Risk History of Falling, Immediate or Within 3 Months: No Secondary Diagnosis: No Ambulatory Aid: Walks without aid/bedrest/nurse assist Health Risk Assessment Form Do you need help eating, bathing, using the toilet, dressing, or getting around your home?: No Can you prepare your own meals?: Yes Can you do your own housework without help?: Yes Can you shop for groceries or clothes without help?: Yes Do you exercise for about 20 minutes 3 or more days a week?: Yes How confident are you that you can control and manage most of your health problems?: Very confident Can you mange your money, credit cards and accounts, pay bills and taxes?: Yes Cognitive Screening Three Word Registration: Apple, Watch, Kimber Clock Drawing: Normal Clock - 2 Three Word Recall: All 3 words correct - 3 Total Score (0-5 Points): 5 Pain Assessment Pain Score: 2 Advance Care Planning Do you have a living will?: No Do you have a medical power of research attorney?: Yes Who is your medical power of research attorney?: avery Objective : BP 122/70 Pulse 56 Ht 6' Wt 207 lb SpO2 97% BMI 28.07 kg/m No results found. Physical Exam Constitutional: General: He is not in acute distress. Appearance: He is normal weight. He is not ill-appearing. HENT: Head: Normocephalic. Cardiovascular: Rate and Rhythm: Normal rate and regular rhythm. Heart sounds: Normal heart sounds. No murmur heard. Pulmonary: Effort: Pulmonary effort is normal. Breath sounds: Normal breath sounds. Musculoskeletal: General: No swelling. Right lower leg: No edema. Left lower leg: No edema. Neurological: Mental Status: He is alert. Psychiatric: Mood and Affect: Mood normal. Thought Content: Thought content normal. Judgment: Judgment normal. Assessment/Plan : The following health maintenance schedule was reviewed with the patient and provided in printed form in the after visit summary: Health Maintenance Topic Date Due Medicare Annual Wellness (AWV) 08/27/2023 Colorectal Cancer Screening 03/10/2024 Influenza Vaccine Completed Pneumococcal Vaccine: 65+ Years Completed Advance Care Planning Assessment/Plan Diagnoses and all orders for this visit: Routine general medical examination at health care facility - Comprehensive metabolic panel; Future - CBC and differential ACP (advance care planning) Hypothyroidism, unspecified (CMS/HCC) - levothyroxine (Synthroid, Levoxyl) 100 MCG tablet; Take 1 tablet (100 mcg) by mouth in the morning. Take before meals. Acquired hypothyroidism (CMS/HCC) - TSH W/REFLEX TO FT4; Future Mixed hyperlipidemia (CMS/HCC) - Lipid panel; Future Other cardiac arrhythmia Lumbosacral spondylosis without myelopathy - Comprehensive metabolic panel; Future - CBC and differential Prostate cancer screening - PSA No orders of the defined types were placed in this encounter. Electronically signed by Demond Mercado MD on March 11, 2024 documented in this encounter [facility] 03-05-2024 History of Presen t illness Narrative Images from the original note were not included. Patient: Odalys Moser : 1955 PCP: Demond Mercado MD SUBJECTIVE This is a 68 y.o. male that presents today The patient is here status post hammertoe correction spur removal 4th digit /hemiphalangectomy procedure. Postop week 2. They deny fevers, chills, nausea, vomiting, calf pain and shortness of breath. Pain level is being managed with ice elevation and pain medication. They have been relatively compliant with her postoperative care. Allergies: Allergies Allergen Reactions Atorvastatin Other Reaction(s): Muscle pain Past Medical History: Past Medical History: Diagnosis Date Actinic keratoses Allergies Anemia Cervical arthritis Depression (CMS/HCC) High cholesterol (CMS/HCC) Hypothyroid (CMS/HCC) Medications: Current Outpatient Medications: Ascorbic Acid (Vitamin C) 500 MG capsule, Take by mouth 1 (one) time each day., Disp: , Rfl: B Complex Vitamins (vitamin B complex) tablet, Take 1 tablet by mouth in the morning., Disp: , Rfl: Ferrous Sulfate (iron) 325 (65 Fe) MG tablet, 1 (one) time each day., Disp: , Rfl: levothyroxine (Synthroid, Levoxyl) 100 MCG tablet, TAKE 1 TABLET BY MOUTH ONCE EVERY MORNING ON AN EMPTY STOMACH, Disp: 90 tablet, Rfl: 3 omega-3 (Fish Oil) 1000 MG capsule, Take 1,000 mg by mouth in the morning., Disp: , Rfl: rosuvastatin (Crestor) 40 MG tablet, TAKE 1 TABLET BY MOUTH EVERY DAY, Disp: 100 tablet, Rfl: 3 sildenafil (Viagra) 100 MG tablet, Take 1 tablet (100 mg) by mouth if needed for erectile dysfunction, Disp: 10 tablet, Rfl: 1 Review of systems: Constitutional: Denies fever, chills, nausea, vomiting GI: Denies abdominal pain, cramping, loose stool, gastric ulcers Musculoskeletal: Denies low back pain, knee pain, systemic arthritis Neurologic: Denies burning, tingling, transient paralysis OBJECTIVE Physical Examination: DERM: Positive hair growth to b/l feet with good skin turgor noted. Negative openings in skin VASC: DP /PT were palpable bilateral. Capillary refill time < 3 seconds Digits 1-5 bilateral NEURO: [place] Caprice 5.07 monofilament was intact B/L. Vibratory sensation was intact B/L Musculoskeletal: Muscle strength was +5 over 5 all intrinsic and extrinsic muscles tested. Negative Homans test noted Surgical site evaluation: The incision site is healing well without signs infection. Minimal swelling noted. Consistent with the patient's level of surgery consistent with time frame postoperatively. Sutures remain intact without signs of dehiscence. ASSESSMENT 1. Acquired hammer toe deformity of lesser toe of left foot PLAN Today we applied a dry sterile dressing with betadine to the incision site. Sutures removed today. Applied Steri-Strips to the incision sites follow up with me in 2 weeks for reassessment. JENNY Richardson documented in this encounter [facility] 02-26-2024 History of Presen t illness Narrative Images from the original note were not included. Patient: Odalys Moser : 1955 PCP: Demond Mercado MD SUBJECTIVE This is a 68 y.o. male that presents today The patient is here status post hammertoe correction spur removal 4th digit /hemiphalangectomy procedure. Postop week 1. They deny fevers, chills, nausea, vomiting, calf pain and shortness of breath. Pain level is being managed with ice elevation and pain medication. They have been relatively compliant with her postoperative care. Allergies: Allergies Allergen Reactions Atorvastatin Other Reaction(s): Muscle pain Past Medical History: Past Medical History: Diagnosis Date Actinic keratoses Allergies Anemia Cervical arthritis Depression (CMS/HCC) High cholesterol (CMS/HCC) Hypothyroid (CMS/HCC) Medications: Current Outpatient Medications: Ascorbic Acid (Vitamin C) 500 MG capsule, Take by mouth 1 (one) time each day., Disp: , Rfl: B Complex Vitamins (vitamin B complex) tablet, Take 1 tablet by mouth in the morning., Disp: , Rfl: Ferrous Sulfate (iron) 325 (65 Fe) MG tablet, 1 (one) time each day., Disp: , Rfl: levothyroxine (Synthroid, Levoxyl) 100 MCG tablet, TAKE 1 TABLET BY MOUTH ONCE EVERY MORNING ON AN EMPTY STOMACH, Disp: 90 tablet, Rfl: 3 omega-3 (Fish Oil) 1000 MG capsule, Take 1,000 mg by mouth in the morning., Disp: , Rfl: oxyCODONE-acetaminophen (Percocet) 5-325 MG tablet, Take 1 tablet by mouth every 6 (six) hours if needed for severe pain for up to 5 days, Disp: 15 tablet, Rfl: 0 rosuvastatin (Crestor) 40 MG tablet, TAKE 1 TABLET BY MOUTH EVERY DAY, Disp: 100 tablet, Rfl: 3 sildenafil (Viagra) 100 MG tablet, Take 1 tablet (100 mg) by mouth if needed for erectile dysfunction, Disp: 10 tablet, Rfl: 1 Review of systems: Constitutional: Denies fever, chills, nausea, vomiting GI: Denies abdominal pain, cramping, loose stool, gastric ulcers Musculoskeletal: Denies low back pain, knee pain, systemic arthritis Neurologic: Denies burning, tingling, transient paralysis OBJECTIVE Physical Examination: DERM: Positive hair growth to b/l feet with good skin turgor noted. Negative openings in skin VASC: DP /PT were palpable bilateral. Capillary refill time < 3 seconds Digits 1-5 bilateral NEURO: [place] Caprice 5.07 monofilament was intact B/L. Vibratory sensation was intact B/L Musculoskeletal: Muscle strength was +5 over 5 all intrinsic and extrinsic muscles tested. Negative Homans test noted Surgical site evaluation: The incision site is healing well without signs infection. Minimal swelling noted. Consistent with the patient's level of surgery consistent with time frame postoperatively. Sutures remain intact without signs of dehiscence. Three views were taken today AP/MO/LAT foot: No fractures or dislocations seen excellent position and alignment of the 5th digit excellent reduction of the hammertoe deformity of the 4th and 5th digit left foot ASSESSMENT 1. Acquired hammer toe deformity of lesser toe of left foot 2. Left foot pain PLAN Today we applied a dry sterile dressing with betadine to the incision site. Covered the incision with 4x4s, Kerlix and Errol bandage. The Patient is to continue ice and elevation on a regular basis. They were reminded to remain compliant with her weight-bearing status in the ambulatory surgical device. Follow up with me in 1 week for reassessment JENNY Richardson documented in this encounter [facility] 02-21-2024 Telephone encount er Note The prescription has been sent to the pharmacy. Thank you. [facility] 02-21-2024 Miscellaneous Notes Formattin g of this note might be different from the original. The prescription has been sent to the pharmacy. Thank you. documented in this encounter [facility] 01-24-2024 Telephone encount er Note Phone #: [phone] Insurance: Payor: MEDICARE / Plan: MEDICARE RAILROAD / Product Type: Medicare / Preferred Date/Time: First Available [x] RAJESH [] Patient Name: Odalys Moser : 1955 Surgeon: Dr. Bob Ramires [x] Dr. Toñito Ramires [] Location: [facility] [x] [facility] [place] [] [facility] [] Procedure(s): Derotational arthroplasty left 5th digit, hemiphalangectomy left 5th distal phalanx CPT Code(s): 84422, 45903 Diagnosis: ICD-10-CM 1. Acquired hammer toe deformity of lesser toe of left foot M20.42 2. Exostosis M89.8X9 Procedure Time: 30 min [x] 1 Hour [] 1.5 Hour [] 2 Hours [] Anesthesia: MAC [] General [] Local [x] Popliteal Block [] Position: Supine [x] Prone [] Lateral [] Special Requests: C-arm [] Pulse Lavage [] VersaJet [] Special Equipment: Arthrex plate /screws [] Internal brace [] Arthrex FiberTak [] Biopro Staple [] Biopro Elliott Impant [] Other [] Pre-op Orders: Abx 30 min Prior: 2g Ancef [] Clindamycin 600mg [] Vancomycin 1 g [] Post-op WB: Partial WB [] Non-WB [] Crutches [] Walker [] Knee Scooter [] PCP Clearance: Demond Mercado MD Other Clearance: Cardiology [] Rheumatology [] Other [] [facility] 01-24-2024 Miscellaneous Notes Formattin g of this note is different from the original. Phone #: [phone] Insurance: Payor: MEDICARE / Plan: MEDICARE RAILROAD / Product Type: Medicare / Preferred Date/Time: First Available [x] RAJESH [] Patient Name: Odalys Moser : 1955 Surgeon: Dr. Bob Ramires [x] Dr. Toñito Ramires [] Location: [facility] [x] [facility] [] [facility] [] Procedure(s): Derotational arthroplasty left 5th digit, hemiphalangectomy left 5th distal phalanx CPT Code(s): 21142, 84659 Diagnosis: ICD-10-CM 1. Acquired hammer toe deformity of lesser toe of left foot M20.42 2. Exostosis M89.8X9 Procedure Time: 30 min [x] 1 Hour [] 1.5 Hour [] 2 Hours [] Anesthesia: MAC [] General [] Local [x] Popliteal Block [] Position: Supine [x] Prone [] Lateral [] Special Requests: C-arm [] Pulse Lavage [] VersaJet [] Special Equipment: Arthrex plate /screws [] Internal brace [] Arthrex FiberTak [] Biopro Staple [] Biopro Elliott Impant [] Other [] Pre-op Orders: Abx 30 min Prior: 2g Ancef [] Clindamycin 600mg [] Vancomycin 1 g [] Post-op WB: Partial WB [] Non-WB [] Crutches [] Walker [] Knee Scooter [] PCP Clearance: Demond Mercado MD Other Clearance: Cardiology [] Rheumatology [] Other [] documented in this encounter [facility] 01-24-2024 History of Presen t illness Narrative Images from the original note were not included. Patient: Odalys Moser : 1955 PCP: Demond Mercado MD SUBJECTIVE This is a 68 y.o. male that presents today for a chief complaint of painful left 5th digit at the level PIPJ joint less pain noted at the DIPJ joint but he does have a hyperkeratotic lesion noted interdigitally. Patient is quite athletic he is a runner and when performs activities of daily living he has significant pain in the toe. He has attempted shoe gear modifications anti-inflammatory medications pads to no avail. Wishes to have a definitive procedure performed. Allergies: Allergies Allergen Reactions Atorvastatin Other Reaction(s): Muscle pain Past Medical History: Past Medical History: Diagnosis Date Actinic keratoses Allergies Anemia Cervical arthritis Depression (CMS/HCC) High cholesterol (CMS/HCC) Hypothyroid (CMS/HCC) Medications: Current Outpatient Medications: Ascorbic Acid (Vitamin C) 500 MG capsule, Take by mouth 1 (one) time each day., Disp: , Rfl: B Complex Vitamins (vitamin B complex) tablet, Take 1 tablet by mouth in the morning., Disp: , Rfl: Ferrous Sulfate (iron) 325 (65 Fe) MG tablet, 1 (one) time each day., Disp: , Rfl: levothyroxine (Synthroid, Levoxyl) 100 MCG tablet, TAKE 1 TABLET BY MOUTH ONCE EVERY MORNING ON AN EMPTY STOMACH, Disp: 90 tablet, Rfl: 3 omega-3 (Fish Oil) 1000 MG capsule, Take 1,000 mg by mouth in the morning., Disp: , Rfl: rosuvastatin (Crestor) 40 MG tablet, TAKE 1 TABLET BY MOUTH EVERY DAY, Disp: 100 tablet, Rfl: 3 sildenafil (Viagra) 100 MG tablet, Take 1 tablet (100 mg) by mouth if needed for erectile dysfunction, Disp: 10 tablet, Rfl: 1 ROS: Constitutional: Denies fever, chills, nausea, vomiting GI: Denies abdominal pain, cramping, loose stool, gastric ulcers Musculoskeletal: Denies low back pain, knee pain, systemic arthritis Neurologic: Denies burning, tingling, transient paralysis OBJECTIVE Physical examination: Vascular: Dorsalis pedis posterior tibial pulses are palpable bilateral, no edema noted Neuro: [place]-Caprice 5.07 monofilament intact, vibratory sensation intact Derm: All hair growth noted skin temperature is warm to cool knees to toes Musculoskeletal: Muscle strength +5/5 all intrinsic and extrinsic muscles tested adductovarus left 5th digit with pain with direct palpation of the PIPJ joint left 5th digit. Toe is in an adductovarus attitude small spur noted the distal condyle of the distal phalanx medially 5th digit toe is reducible no pain at the 5th metatarsal head. 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 US: ASSESSMENT 1. Acquired hammer toe deformity of lesser toe of left foot 2. Left foot pain 3. Exostosis PLAN Educated the patient on the adductovarus left 5th digit. I discussed further conservative options and I dispensed a Silipos pad today. Patient has attempted padding wishes to have a definitive procedure I recommended a derotational arthroplasty of the left 5th digit with a condylectomy/hemiphalangectomy of the medial condyle of the distal phalanx left 5th digit. This will be performed under local anesthesia at the [facility]. The patient was educated on the pre, clinton, postoperative course of the procedure in great detail. We discussed further conservative therapies which the patient has attempted and has failed. I discussed the surgical procedure in great detail including the risks and possible complications. We discussed the following complications in great detail including but not limited to: Pain, infection, prolonged swelling, numbness, tingling, burning, nonhealing wound, nonunion, malunion, chronic pain, development of complex regional pain syndrome, development of deep venous thrombosis. Patient fully understood all possible risks and complications. All questions have been asked and answered. They have consented for the above-stated procedure. JENNY Richardson documented in this encounter [facility] 06-29-2023 Evaluation + Plan note Extrac yudi from: Title:chronic pain Author:Salvatore Small DO Date:06/29/23 Patient is presenting with c omplaints of axial neck pain that he rates as a 1/10 in severity but can be a 6/10 in severity particular twisting turning and nodding motions. This pain has been going on for several months and he has had a cervical spine MRI and has had prescription for diclofenac gel which he has not tried yet. He would also like to discuss his right-sided low back and buttock pain this was more significant to him in the past and described as a sharp/stabbing sensation that go from 1/10 to a 6/10 in severity, this is worse with any prolonged sitting greater than 30 minutes as well as transitioning from seated to a standing position. His pain does improve when he stands and walks for even a short distance. We discussed that this is likely sacroiliitis in nature but we did review his MRI from 2021 as well and discussed that he has multilevel foraminal stenosis from L2/3 to L5/S1 with mild central canal stenosis at L3/4 and degenerative changes throughout. It appears that his pain is not significantly flared in any of these regions we will work on obtaining records and follow-up with him if his pain does worsen. He is very active and has done physical therapy in the past and has done a home exercise program with stretching strengthening nearly daily and this may have had some improvement in his pain at present but he is worried that his pain may flare again. AUTUMN Score: 10% PHQ-2: 0 Patient denies any symptoms of progressively worsening upper/lower extremity weakness, progressively worsening gait abnormality, new onset bowel/bladder incontinence/ urinary retention, or saddle anesthesia. No new or worsening symptoms of fever, chills, night sweats. 14 Point Review of systems negative unless otherwise noted. General: No acute distress. Patient appears well-nourished. HEENT: Head is normocephalic and external ears are normal in appearance. Cardiovascular: No signs of poor perfusion and no peripheral edema Pulmonary: Nonlabored breathing, symmetric chest movement. GI: Abdomen nondistended Integumentary: No lesions Musculoskeletal: Tenderness to palpation cervical paraspinal musculature. Neurologic: Alert, oriented x3. 5/5 strength grossly in the bilateral upper extremities. Sensation intact to light touch in the bilateral upper extremities. 5/5 strength grossly in the bilateral lower extremities. Sensation intact to light touch in the bilateral lower extremities. Special Testing: Negative Gonzalo sign bilaterally, seated straight leg raise does not reproduce radicular symptoms bilaterally. Positive KAREN and Gaenslen's reproducing sacroiliac joint pain, positive lumbosacral spring and compression test reproducing sacroiliac joint pain, thigh thrust and sacral thrust also reproduced sacroiliac joint pain. Laterality of positive SI Joint Testing: Right Cervical facet loading did reproduce axial pain only. History, physical examination, and personal review of pertinent imaging results indicate a diagnosis of: -Lumbar radiculopathy -Lumbar spondyloarthropathy -Right-sided sacroiliitis -Cervical spondyloarthropathy Plan: -We lengthy discussion about his current symptoms it appears that they are significantly better than when he initially made this appointment, we discussed that his right-sided buttock pain is likely right-sided sacroiliitis -We discussed his neck pain and this is likely spondyloarthropathy in nature and he does not have a radicular component this is purely axial, we discussed that we can perform bilateral C3-5 medial branch blocks but we will work on obtaining his cervical spine MRI as well as records from previous pain management and can further direct care from this -Will follow-up in 6 months or sooner if any of his pain areas flare at this time Patient was counseled on the above diagnosis and treatment, all questions were answered and patient agrees to adhere to the plan above. Risk and benefits of appropriate procedures and medications were reviewed as well with patient, who voiced understanding and agreeance. Patient was counseled on appropriate use of opioids if prescribed or renewed today and naloxone was offered to patient if opioids were prescribed or maintained at this visit. PHQ-2 scoring reviewed with patient and discussed seeking treatment for depression or mood disorder as appropriate. Patient was counseled on smoking cessation and/or continuing to abstain from nicotine/tobacco products as appropriate based on history; as smoking/nicotine can contribute to increased pain overall and decreased wound healing. Patient counseled on maintaining a healthy BMI as part of the total treatment of their pain and to reduce stress/strain on joints. Patient invited to return or call with any questions or concerns that arise. [place]01-10-2024 Evaluation note* Encounter Date Diagnosis Assessment Notes Treatment Notes Treatment Clinical Notes Apr, Cervical spondylosis (ICD-10 - M47.812) 67 year old male here for follow up to discuss chronic pain. Patient reports 20-30% improvement in ROM and pain since physical therapy. He voices continued complaints of neck pain and intermittent headaches. He feels pain negatively impacts daily activities and sleeping pattern. Different treatment options were discussed in detail with the patient, currently his pain is well controlled. If his symptoms worsen, we can consider proceeding with a cervical facet medial branch nerve block followed by a radiofrequency ablation, if applicable under fluoroscopic guidance. In the meantime, he is encouraged to continue exercises he learned in physical therapy at home. I will also prescribe Diclofenac gel to apply to painful areas as needed. Apr, Degenerative disc disease, cervical (ICD-10 - M50.30) Stable. Patient denies radicular symptoms Apr, Chronic pain (ICD-10 - G89.29) Patient is encouraged to call the office if his symtpoms worsen. [facility] Other 11-20-2023 Evaluation note* Encounter Date Diagnosis Assessment Notes Treatment Notes Treatment Clinical Notes Feb, Cervical spondylosis (ICD-10 - M47.812) 67 year old male presents with complaints of neck pain, worse on the left side. He denies any radicular symptoms. He states pain has been present for nearly 1 year, worse in the last 3 months. He feels sledding 4 years ago may have contributed to his pain. He denies any prior physical therapy for neck pain. He feels pain is negatively impacting his daily activities and sleeping pattern. Prior to examining the patient I reviewed progress notes from his referring provider Dr Mathews. I also independently reviewed recent imaging of the cervical spine which shows mild degenerative disc disease as well as facet arthropathy. Different treatment options were discussed in detail with the patient, and I will refer him to physical therapy at this time for core muscle strengthening. Feb, Degenerative disc disease, cervical (ICD-10 - M50.30) Patent currnetly denies radicular symptoms. Continue with physical therapy Feb, Chronic pain (ICD-10 - G89.29) Follow up after physical therapy Feb, Other Medical deci leno making shows a new problem to me with further workup planned or suggested with the potential for extensive treatment options that were considered with the most applicable given this patient's situation as noted above. Treatment options considered include a combination of physical therapy approaches, pharmacologic management, and interventional procedures. Those most applicable to the patient were discussed at this time. Risk of complications and/or morbidity and mortality is high given that acute and chronic pain poses a threat to life and bodily function if undertreated, poorly treated or with failure to maintain adequate treatment and timely followup. Given the serious and fluctuating nature of pain with extensive consideration for whenever pain changes, there always remains the possibility of prolonged functional impairment requiring constant patient reassessment and high-level medical decision making. The amount and complexity of data reviewed is high given that patient labs, radiology reports, and other test were obtained, reviewed and summarized as applicable from the physician portal and/or outside medical records. Pertinent positive and negative findings were considered in medical decision-making. [facility] Other 07-22-2022 Evaluation + Plan noteExtracted from: Title:Pain management follow-up Author:Sol Live PA-C Date:10/22/21 Impression and Plan Patient is 66-year-old male with a past medical history significant for lumbar disc bulge and lumbar neuritis. Patient underwent recent right-sided L3 transforaminal epidural steroid injection. This was done on 10/05/2021 and has given him 80% relief. At this time he is comfortable and happy. He is doing well. He does not have any significant pain or complaints. He does not have any concerns. He is overall very pleased with the amount of relief that he has gotten. At this time he is going to call our services should he require anything from us. Otherwise he will follow- up as needed. [place]05-31-2022 Evaluation + Plan noteExtracted from: Title:NPV Author:Aries Davila MD Date :08/31/21 Impression and Plan 66-year-old gentleman with persistent right low back and hip pain consistent with lumbar radiculitis secondary to disc displacement noted at the L3-4 level. His symptoms are consistent with L3 radicular pain. The pain has not responded to regular use of high-dose naproxen as well as a full course of physical therapy. We discussed the option of a right L3 transforaminal epidural steroid injection to provide the patient sustained relief. A detailed description of the procedure including its risk, benefits, and alternatives were reviewed with the patient. He wishes to proceed. Follow-up 2 weeks after the injection to assess response. Patient agrees with plan of care. Future Appointments Appointment Date:09/14/2021 02:45:00 PM Scheduled Provider: Location:[facility] Appointment Type:Surgery FT Appointment Date:09/29/2021 12:30:00 PM Scheduled Provider:Sol Live PA-C Location:[facility] Appointment Type:Pain Management - Follow Up (FT) [place] [facility] [place] Future Appointments Appointment Date:10/22/2021 09:15:00 AM Scheduled Provider:Sol Live PA-C Location:[facility] Appointment Type:Pain Management - Follow Up ([facility]) [place] [facility]* Diagnosis Acquired hammer toe deformity of lesser toe of left foot- Primary Exostosis Exostosis of unspecified site documented in this encounter [facility]* Diagnosis Acquired hammer toe deformity of lesser toe of left foot- Primary Left foot pain Pain in soft tissues of limb Exostosis Exostosis of unspecified site documented [facility]* Diagnosis Acquired hammer toe deformity of lesser toe of left foot- Primary documented in [facility]* Diagnosis Acquired hammer toe deformity of lesser toe of left foot- Primary Left foot pain Pain in soft tissues of limb documented [facility]* Diagnosis Acquired hammer toe deformity of lesser toe of left foot- Primary documented [facility]* Diagnosis Routine general medical examination at health care facility- Primary Routine general medical examination at a health care facility ACP (advance care planning) Other specified counseling Hypothyroidism, unspecified (CMS/HCC) Acquired hypothyroidism (CMS/HCC) Unspecified hypothyroidism Mixed hyperlipidemia (CMS/HCC) Mixed hyperlipidemia Other cardiac arrhythmia Lumbosacral spondylosis without myelopathy Prostate cancer screening Special screening for malignant neoplasm of prostate documented [facility] this encounter [facility] Diagnosis Acquired hammer toe deformity of lesser toe of left foot- Primary Left foot pain Pain in soft tissues of limb [facility] Narrative - Reported* Type Description Date Medical History Depression Medical History Allergies Medical History actinic keratoses Medical History Hypothyroid Medical History Anemia Medical History High cholesterol Medical History Cervical arthritis Medical History Cervical arthritis Surgical History colonoscopy Surgical History Left foot surgery Surgical History left rotator cuff surgery [facility] Other Hospital course Narrative No data available for this section [facility] No data available for this section [facility] No data available for this section [place] Summary Purpose Family History No Family History Records FoundNo Family History Records Found No data available for this section No Family History Records FoundNo Family History Records FoundNo Family History Records Found Advance Directives No Advanced Directives Records FoundNo Advanced Directives Records FoundNo Advanced Directives Records FoundNo Advanced Directives Records FoundNo Advanced Directives Records Found Additional Source Comments (unrecognized sect ion and content) No Status Records FoundNo Status Records FoundNo Status Records FoundNo Status Records FoundNo Status Records Found INFORMATION SOURCE (unrecogn ized section and content) DATE CREATED AUTHOR 06/22/2021 [facility] DATE CREATED AUTHOR AUTHOR'S ORGANIZ ATION 08/06/2021 [facility] DATE CREATED AUTHOR AUTHOR'S ORGANIZ ATION 03/17/2024 [facility] DATE CREATED AUTHOR AUTHOR'S ORGANIZ ATION 03/27/2024 [facility] EPIC DATE CREATED AUTHOR AUTHOR'S ORGANIZ ATION 07/16/2024 [facility] Care Team (unrecognized sect ion and content) Senior Research Project Manager Relationship Specialty Start Date End Date Demond Mercado MD [address] [place] [address] PCP - General Internal Medicine 08/16/22 Demond Mercado MD [address] [place] [address] PCP - ACO Reach 08/25/22 Senior Research Project Manager Relationship Specialty Start Date End Date Demond Mercado MD [address] [place] [address] PCP - General Internal Medicine 08/16/22 Demond Mercado MD [address] [place] [address] PCP - ACO Reach 08/25/22 Senior Research Project Manager Relationship Specialty Start Date End Date Demond Mercado MD [address] [place] [address] PCP - General Internal Medicine 08/16/22 Demond Mercado MD [address] [place] [address] PCP - ACO Reach 08/25/22 Senior Research Project Manager Relationship Specialty Start Date End Date Demond Mercado MD [address] [place] [address] PCP - General Internal Medicine 08/16/22 Demond Mercado MD [address] [place] [address] PCP - ACO Reach 08/25/22 Senior Research Project Manager Relationship Specialty Start Date End Date Demond Mercado MD [address] [place] [address] PCP - General Internal Medicine 08/16/22 Demond Mercado MD [address] [place] [address] PCP - ACO Reach 08/25/22 Senior Research Project Manager Relationship Specialty Start Date End Date Demond Mercado MD [address] [place] [address] PCP - General Internal Medicine 08/16/22 Demond Mercado MD [address] [place] [address] PCP - ACO Reach 08/25/22 Senior Research Project Manager Relationship Specialty Start Date End Date Demond Mercado MD [address] [place] [address] PCP - General Internal Medicine 08/16/22 Demond Mercado MD [address] [place] [address] PCP - ACO Reach 08/25/22 Senior Research Project Manager Relationship Specialty Start Date End Date Demond Mercado MD [address] [place] [address] PCP - General Internal Medicine 08/16/22 Demond Mercado MD [address] [place] [address] PCP - ACO Reach 08/25/22 Senior Research Project Manager Relationship Specialty Start Date End Date Demond Mercado MD [address] [place] [address] PCP - General Internal Medicine 08/16/22 Demond Mercado MD [address] [place] [address] PCP - ACO Reach 08/25/22 REASON FOR VISIT (unrecogniz ed section and content) Reason Comments Toe Problem LT 5th digit lump on toe Reason Comments Foot/ankle Post-op WK1 post op Reason Comments Foot/ankle Post-op WK 2 post op - Regul ar shoe and sock with sutures no bandage over. Reason Comments Medicare Annual Wellness Visit Subsequen t Med Refill Levothyroxine--[facility] Reason Comments Foot/ankle Post-op Week 5 post op: Lt FOR RECORDS PERTAINING TO PATIENTS WHO ARE OR HAVE BEEN ENROLLED IN A CHEMICAL DEPENDENCY/SUBSTANCEABUSE PROGRAM, SOME INFORMATION MAY BE OMITTED. This clinical summary was aggregated from multiple sources. Caution should be exercised in using it in the provision of clinical care. This summary normalizes information from multiple sources, and as a consequence, information in this document may materially change the coding, format and clinical context of patient data. In addition, data may be omitted in some cases. CLINICAL DECISIONS SHOULD BE BASED ON THE PRIMARY CLINICAL RECORDS. [employer] provides no warranty or guarantee of the accuracy or completeness of information in this document.
== END 2024-07-18 13:09 | disposition home or self-care (01) ==
LOC: PST 13:08
PROVIDERS: PCP Internal Medicine; Visit Provider Surgery
DX: Z01.818 Encounter for other preprocedural examination (principal); Z12.11 Encounter for screening for malignant neoplasm of colon

== ENCOUNTER 2024-07-24 07:32 | Day surgery (SDC) | payer MEDICARE, OTHER, SELFPAY ==
--- NOTE | 2024-07-24 | OP_ITS ---
OPERATION DATE: 07/24/2024 PREOPERATIVE DIAGNOSIS: Colorectal screening. POSTOPERATIVE DIAGNOSIS: Redundant colon with spasm. PROCEDURE: Colonoscopy to cecum. SURGEON: Aaron Mcknight M.D. ANESTHESIA: Monitored anesthesia care. ESTIMATED BLOOD LOSS: Zero. INDICATIONS AND CONSENT: Patient is a 68-year-old male, presents for colorectal screening. Indications, risks, benefits, alternatives of proceeding with colonoscopy were explained extensively to the patient, including the risks of bleeding, colon perforation or anesthetic complications. All of his questions were answered. Informed consent was obtained. PROCEDURE: Patient brought to the operating room, placed in the left lateral decubitus position. Monitored anesthesia care was provided. Rectal exam was performed which showed no masses or blood. The scope was inserted into the anal canal. Under direct visualization was advanced. With the aid of abdominal compression and positional changes, the scope was able to be advanced to the cecum where cecal markings were clearly identified. There was noted to be a good prep. Upon withdrawal of the scope, mucosal surfaces were carefully examined. There were no mass lesions or polyps. No inflammatory changes or ulcerations. No significant diverticulosis. The scope was retroflexed in the anal canal. There was no significant hemorrhoidal disease. The scope was then withdrawn. Patient tolerated procedure well, was sent to recovery room in good condition. Follow up colonoscopy likely in 10 years, if the patient remains in good health. CC: Demond Mercado M.D. LISSA
[2024-07-24 07:40] VITALS: BP 145/82; PULSE 49; TEMP 36.1; O2SAT 97; BMI 21.5; BMI 28.3
[2024-07-24] MEDS: 0.9 % SODIUM CHLORIDE 500 ML 50 ML IV (08:08)
[2024-07-24] MEDS: LACTATED RINGER'S SOLUTION 1,000 ML 50 ML IV (09:46)
[2024-07-24 10:19] VITALS: BP 123/71; PULSE 45; TEMP 36.1; O2SAT 97
[2024-07-24 10:34] VITALS: BP 130/82; PULSE 46; O2SAT 100
[2024-07-24 10:52] VITALS: BP 143/86; PULSE 48; O2SAT 96
== END 2024-07-24 10:56 | disposition home or self-care (01) ==
PROVIDERS: PCP Internal Medicine; Visit Provider Surgery
PROC: (CPT G0121; principal; 2024-07-24 08:45)
DX: Z12.11 Encounter for screening for malignant neoplasm of colon (principal); Q43.8 Other specified congenital malformations of intestine; E78.5 Hyperlipidemia, unspecified; E03.9 Hypothyroidism, unspecified; M47.812 Spondylosis without myelopathy or radiculopathy, cervical region; N40.0 Benign prostatic hyperplasia without lower urinary tract symptoms; Z87.891 Personal history of nicotine dependence
CPT/HCPCS: G0121; J2371; J2704